=== PATIENT | female | born 1990 | race Asian ===

== ENCOUNTER → 2024-10-14 11:12 | Outpatient (REF) | payer OTHER, SELFPAY ==
[2024-10-17 02:48] LABS: Quantiferon Mitogen minus NIL 9.93 IU/mL; Quantiferon NIL 0.07 IU/mL; Quantiferon Plus TB1 minus NIL 3.46 IU/mL (<=0.34); Quantiferon Plus TB2 minus NIL 2.97 IU/mL (<=0.34); Quantiferon TB Gold Plus Positive (Negative)
== END ==
LOC: OHS 11:12
PROVIDERS: ATTENDING PHYSICIAN Nurse Practitioner Family
DX: Z23 Encounter for immunization (principal)
CPT/HCPCS: 36415; 86480